=== PATIENT | female | born 2000 | race Caucasian/White ===

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

== ENCOUNTER 2021-03-21 21:11 | Emergency (ER) | payer MEDICAID ==
[~2021-03-21] VITALS: Ht 165.1 cm; Wt 48.6 kg
[~2021-03-21 21:11] MED LIST: ONDA4TAB6 PO; PHEN-716 PO
[2021-03-21 21:38] VITALS: BP 124/74
[2021-03-21 23:46] LABS: D-DIMER 1.17 MG/L FEU (0-0.50)
[2021-03-22] MEDS ORDERED: LORazepam 0.5 MG tablet PO PRN (00:50)
[2021-03-22] MEDS ORDERED: iohexol 350MG/ML 100ml bottle IV ONE (01:06)
[2021-03-22] MEDS ORDERED: iohexol 300mg/ml 100ml inj. ONE (01:06)
[2021-03-22 01:24] LABS: HCG SERUM QL NEGATIVE
== END 2021-03-22 03:46 | disposition home or self-care (01) ==
LOC: ER 21:12
DX: F41.9 Anxiety disorder, unspecified (principal); R07.89 Other chest pain; R06.02 Shortness of breath; Z79.899 Other long term (current) drug therapy
CPT/HCPCS: 36415; 71275; 84703; 85379; 93005; 99285; Q9967

== ENCOUNTER 2021-09-04 21:34 | Emergency (ER) | payer MEDICAID ==
[~2021-09-04] VITALS: Ht 165.1 cm; Wt 48.6 kg
[2021-09-04 23:29] LABS: URINE HCG NEGATIVE (NEG)
[2021-09-05 00:28] VITALS: BP 134/74
== END 2021-09-05 00:29 | disposition home or self-care (01) ==
LOC: ER 21:35
DX: R00.2 Palpitations (principal); R06.02 Shortness of breath; R42 Dizziness and giddiness
CPT/HCPCS: 71045; 81025; 93005; 99285